=== PATIENT | male | born 1995 | race Caucasian/White ===

== ENCOUNTER 2021-04-22 08:14 | Emergency (ER) | payer SELFPAY ==
[~2021-04-22] VITALS: Ht 167.6 cm; Wt 67.2 kg
[2021-04-22] MEDS ORDERED: IV NORMAL SALINE 1000ML BAG 1,000 ML IV ONE (09:30)
[2021-04-22] MEDS ORDERED: ONDANSETRON PF 4 MG/2 ML VIAL. IVP ONE (09:30)
[2021-04-22] MEDS ORDERED: KETOROLAC 30 MG/ML VIAL. IVP ONE (09:30)
--- NOTE | 2021-04-22 11:11 | RAD ---
INDICATION: Reason: cough, COVID INFECTION / Spl. Instructions: / History: COMPARISON: None. FINDINGS: Single view of chest obtained. No focal airspace consolidation. Cardiomediastinal contour unremarkable. No acute osseous abnormality. IMPRESSION: * No focal airspace consolidation or edema. Electronically signed by: Billy Fernández MD (04/22/2021 11:08 AM) [id number]
--- NOTE | 2021-04-22 11:20 | PHYS DOC ---
General Adult EDM: Chief Complaint: HEADACHE HPI: HPI: Patient is a 26 year old male who present to ER for evaluation of headache, fever and chills. Patient said he has been sick with body ache flulike symptom nonproductive cough diarrhea with nausea for over a week. Patient has been drinking water but not able to eat much. Patient was not vaccinated for COVID- 19. Patient said he feels dehydrated. Patient denies any abdominal pain. Review of Systems: Review of Systems: Constitutional: Positive for fever and chills Eyes: Denies change in visual acuity. [] HENT: Denies nasal congestion or sore throat. [] Respiratory: Positive for nonproductive cough, no trouble breathing. Cardiovascular: Denies chest pain or edema. [] GI: Denies abdominal pain, positive for nausea vomiting diarrhea. : Denies dysuria. [] Musculoskeletal: Positive for back pain and muscle pain, joint pain Integument: Denies rash. [] Neurologic: Denies headache, focal weakness or sensory changes. [] Endocrine: Denies polyuria or polydipsia. [] Lymphatic: Denies swollen glands. [] Psychiatric: Denies depression or anxiety. [] Heart Score: C/O Chest Pain: N/A Risk Factors: Risk Factors: DM, Current or recent (<one month) smoker, HTN, HLP, family history of CAD, obesity. Risk Scores: Score 0 - 3: 2.5% MACE over next 6 weeks - Discharge Home Score 4 - 6: 20.3% MACE over next 6 weeks - Admit for Clinical Observation Score 7 - 10: 72.7% MACE over next 6 weeks - Early Invasive Strategies Current Medications: Current Medications Medications (Trade) Dose Ordered Sig/Virginie Start Time Stop Time Status Last Admin Dose Admin Ketorolac Tromethamine (Toradol 30mg Vial) 30 mg 1X ONCE 04/22/21 09:30 04/22/21 10:05 DC 04/22/21 10:02 30 MG Ondansetron HCl (Zofran) 4 mg 1X ONCE 04/22/21 09:30 04/22/21 10:05 DC 04/22/21 10:02 4 MG Sodium Chloride 1,000 ml @ 1,000 mls/hr 1X ONCE 04/22/21 09:30 04/22/21 10:29 DC 04/22/21 10:00 1,000 MLS/HR Allergies: Allergies: Allergies Coded Allergies Type Severity Reaction Last Updated Verified No Known Drug Allergies 04/22/21 No Physical Exam: PE: Constitutional: Well developed, well nourished, no acute distress, non-toxic appearance. [] HENT: Normocephalic, atraumatic, bilateral external ears normal, oropharynx moist, no oral exudates, nose normal. [] Eyes: PERRLA, EOMI, conjunctiva normal, no discharge. [] Neck: Normal range of motion, no tenderness, supple, no stridor. [] Cardiovascular:Heart rate regular rhythm, no murmur [] Lungs & Thorax: Bilateral breath sounds clear to auscultation [] Abdomen: Bowel sounds normal, soft, no tenderness, no masses, no pulsatile masses. [] Skin: Warm, dry, no erythema, no rash. [] Back: No tenderness, no CVA tenderness. [] Extremities: No tenderness, no cyanosis, no clubbing, ROM intact, no edema. [] Neurologic: Alert and oriented X 3, normal motor function, normal sensory function, no focal deficits noted. [] Psychologic: Affect normal, judgement normal, mood normal. [] Current Patient Data: Labs: Laboratory Tests Test 04/22/21 10:08 SARS-CoV-2 Antigen (Rapid) Positive (NEGATIVE) *A Vital Signs: Vital Signs Date Time Temp Pulse Resp B/P (MAP) Pulse Ox O2 Delivery O2 Flow Rate FiO2 04/22/21 10:03 99.4 58 16 100 99.4 EKG: EKG: [] Radiology/Procedures: Radiology/Procedures: [][facility] [address] [place] [address] IMAGING REPORT Signed PATIENT: SHAMA MCKEON ACCOUNT: [id number] : 1995 LOCATION: ER AGE: 26 SEX: M EXAM STATUS: REG ER ORD. PHYSICIAN: ALEX ROBLES DO REASON: cough, COVID INFECTION PROCEDURE: CHEST AP ONLY INDICATION: Reason: cough, COVID INFECTION / Spl. Instructions: / History: COMPARISON: None. FINDINGS: Single view of chest obtained. No focal airspace consolidation. Cardiomediastinal contour unremarkable. No acute osseous abnormality. IMPRESSION: * No focal airspace consolidation or edema. Electronically signed by: Sabrina Fernández MD (04/22/2021 11:08 AM) [id number] DICTATED and SIGNED BY: SABRINA FERNÁNDEZ MD DATE: 04/22/21 [id number] 0 Course & Med Decision Making: Course & Med Decision Making Pertinent Labs and Imaging studies reviewed. (See chart for details) Patient is a 26-year-old male who present to ER due to body ache, fever and chills, headache, cough. Patient also have diarrhea. Symptoms have been going on for about 1 week. Patient was tested positive for COVID-19. His chest x-ray was normal. Patient oxygen saturation with normal. Patient was given IV fluid in ER, he feel much better. Patient will be discharged home. Dragon Disclaimer: Dragon Disclaimer: This electronic medical record was generated, in whole or in part, using a voice recognition dictation system. Departure Departure Impression: Primary Impression: COVID-19 virus infection Disposition: HOME / SELF CARE / HOMELESS Condition: IMPROVED Referrals: NO PCP (PCP) Follow up with your doctor as needed. Patient Instructions: Viral Syndrome Additional Instructions: You have been tested for or diagnosed with COVID-19. It is an infection caused by a new type of coronavirus. COVID-19 will cause cold-like or mild flu symptoms in most. It can cause more severe symptoms like problems breathing in some. There is no treatment for COVID-19. The body will clear the infection over time. Self-care will help to ease discomfort. Steps to Take: Self-Care Rest as needed. Healthy habits may help you feel better. Steps include: Choose healthy foods including fruits and vegetables. Drink water throughout the day. Get plenty of sleep each night. If you smoke, try to quit. It may ease breathing. Avoid alcohol. Keep Others Healthy The virus can spread to others. Droplets are released every time you sneeze or cough. The droplets can get into the mouth, nose, or eyes of people near you and lead to infection. To lower the chances of spreading COVID-19 to others: Stay at home until your doctor has said it is safe to leave. If you tested positive this will mean staying isolated until both of the following are true: At least 7 days have passed since the start of illness. You are free of fever for at least 72 hours without the use of medicine. During this time: - Avoid public areas, events, or transportation. Do not return to work or school until your doctor has said it is safe to do so. - Call ahead if you need to go to a medical center. Let them know you may have COVID-19. It will help them guide you where to go. They may also ask you to wear a facemask when you come to the office. - If you call for emergency medical services, let them know you may have COVID- 19. While at home: - Try to avoid close contact with others. Stay about 6 feet away. - If possible, spend most of your time in a separate room from others. - Use a face mask if you will be in close contact with others such as sharing a room or vehicle. - Have someone wipe down common surfaces in the home. Use household material requirements worker every day on areas like doorknobs, counters, or sinks. - Cough or sneeze into a tissue. Throw the tissue away right after use. If a tissue is not available, cough or sneeze into your elbow. - Wash your hands often. Wash them after sneezing or coughing. Use soap and water and wash for at least 20 seconds. Alcohol based hand cotton cleaner can be used if soap and water is not available. - Do not prepare food for others. Avoid sharing personal items like forks, spoons, or toothbrushes. - Avoid close contact with pets while you are sick. There is no evidence of the virus passing to pets. This is a safety step until more is known about this virus. Isolation can be frustrating. Social interaction can help. Keep in touch with friends and family through phone and tech options. You can still interact with others in your home, just keep a safe distance of about 6 feet. Follow-up: Your doctors office will check in with you to see if there are any changes in your health. You may be asked to keep track of symptoms to share with them. They will also let you know when you are clear to be in public again. Problems to Look Out For: Contact your doctor if your recovery is not going as you expect. Get emergency care if you have problems such as: - Trouble breathing - Nonstop chest pain or pressure - Changes in awareness, confusion, or problems waking - Lips or face have bluish color - Worsening of symptoms If you think you have an emergency, call for emergency medical services right a way. As taken from [facility] Prednisone (PREDNISONE) 20 Mg Tablet 1 TAB PO DAILY for 7 Days, #7 TAB Prov: ALEX ROBLES DO 04/22/21 Albuterol Sulfate (PROAIR HFA INHALER) 8.5 Gm Hfa.aer.ad 2 PUFF IH PRN Q4-6HRS PRN for wheezing for 21 Days, #1 INHALER 0 Refills Prov: ALEX ROBLES DO 04/22/21 ALEX ROBLES DO Apr 22, 2021 11:20
[2021-04-22 12:11] VITALS: BP 135/81
[2021-04-22] MEDS ORDERED: PRED20TA PO (12:37)
[2021-04-22] MEDS ORDERED: ALBU2.5V8 IH (12:37)
== END 2021-04-22 12:35 | disposition home or self-care (01) ==
LOC: ER 08:14
DX: U07.1 COVID-19 (principal)
CPT/HCPCS: 71045; 87426; 96361; 96374; 96375; 99285; J1885; J2405; J7030

== ENCOUNTER 2021-04-27 01:14 | Emergency (ER) | payer SELFPAY ==
[~2021-04-27] VITALS: Ht 170.2 cm; Wt 72.7 kg
[~2021-04-27 01:14] MED LIST: ALBU2.5V8 IH; PRED20TA PO
--- NOTE | 2021-04-27 07:48 | PHYS DOC ---
Past Medical History Past Surgical History: No Surgical History Smoking Status: Current Every Day Smoker Alcohol Use: Occasionally General Adult EDM: Chief Complaint: CHEST PAIN HPI: HPI: Patient is a 26 year old male with reported history of asthma, and recent COVID positive test on 04/22 who presents with ongoing chills, body aches, cough, and now chest pain. On 04/22 was given an albuterol inhaler and prednisone prescription. States that the prednisone has made him feel anxious, so he did not take his dose yesterday or this morning. States he has had left-sided chest discomfort. It is occasional. Sharp. Not pleuritic. Not exertional. Feels slightly short of breath, but this has been constant for several days prior to any chest discomfort. He is not vaccinated against COVID. Reports occasional alcohol use in social situations.. Occasional marijuana. No other drug use. No long-term medications. No recent hospitalizations, immobilizations, surgeries, hemoptysis. No history of cancer. Review of Systems: Review of Systems: Constitutional: Reports chills Eyes: Denies change in visual acuity. [] HENT: Reports nasal congestion, runny nose. Respiratory: reports cough and shortness of breath Cardiovascular: Reports chest pain GI: Denies abdominal pain, nausea, vomiting, bloody stools or diarrhea. [] : Denies dysuria. [] Musculoskeletal: Denies back pain or joint pain. [] Integument: Denies rash. [] Neurologic: Reports headache. Denies focal weakness or sensory changes. [] Psychiatric: Denies depression or anxiety. [] Heart Score: C/O Chest Pain: Yes HEART Score for Chest Pain: HEART Score for Chest Pain Response (Comments) Value History Slighlty/Non-Suspicious 0 ECG Normal 0 Age < 45 0 Risk Factors No Risk Factors 0 Total 0 Risk Factors: Risk Factors: None Risk Scores: Score 0 - 3: 2.5% MACE over next 6 weeks - Discharge Home Allergies: Allergies: Allergies Coded Allergies Type Severity Reaction Last Updated Verified No Known Drug Allergies 04/22/21 No Physical Exam: PE: Constitutional: Well developed, well nourished, no acute distress, non-toxic appearance. [] HENT: Normocephalic, atraumatic, bilateral external ears normal, oropharynx moist, no oral exudates, nose normal. [] Eyes: PERRLA, EOMI, conjunctiva normal, no discharge. [] Neck: Normal range of motion, no tenderness, supple, no stridor. [] Cardiovascular:Heart rate regular rhythm, no murmur [] Lungs & Thorax: Bilateral breath sounds clear to auscultation. Normal work of breathing. No wheezing. [] Abdomen: Bowel sounds normal, soft, no tenderness, no masses, no pulsatile masses. [] Skin: Warm, dry, no erythema, no rash. [] Back: No tenderness, no CVA tenderness. [] Extremities: No tenderness, no cyanosis, no clubbing, ROM intact, no edema. [] Neurologic: Alert and oriented X 3, normal motor function, normal sensory function, no focal deficits noted. [] Psychologic: Affect normal, judgement normal, mood normal. [] EKG: EKG: Sinus rhythm. Rate 57. Normal axis. Normal intervals. No ST elevation or depression. No pathologic Q waves or T wave inversion. Interpretation: Normal EKG. No ischemic changes.[] Radiology/Procedures: Radiology/Procedures: [] Impression: [facility] [address] [place] [address] IMAGING REPORT Signed PATIENT: SHAMA MCKEON ACCOUNT: [id number] : 1995 LOCATION: ER AGE: 26 SEX: M EXAM STATUS: REG ER ORD. PHYSICIAN: NEVIN ELIZABETH MD REASON: left sided chest pain, covid PROCEDURE: CHEST AP ONLY XR CHEST 1V INDICATION: left sided chest pain, covid COMPARISON STUDY: 04/22/2021. FINDINGS: Lungs: Normal lung volume. No pulmonary mass or consolidation. The tracheobronchial tree and hilar structures are normal. Pleura: No pleural effusion or pneumothorax. Heart and Mediastinum: The cardiomediastinal silhouette is normal. The great vessels of the thorax are normal. Bones and Soft Tissues: The bones and soft tissues are within normal limits. IMPRESSION: No acute cardiopulmonary process. Electronically signed by: Eusebio Villalobos MD (04/27/2021 8:34 AM) [id number] DICTATED and SIGNED BY: EUSEBIO VILLALOBOS MD DATE: 04/27/21 [id number] 0 Course & Med Decision Making: Course & Med Decision Making Pertinent Labs and Imaging studies reviewed. (See chart for details) Patient a 26-year-old male who recently tested positive for COVID on 04/22 who presents with ongoing COVID symptoms and new chest pain. On arrival is afebrile, hemodynamically stable. Satting 99-100% on room air. PERC negative. No further PE work-up will be obtained EKG normal as described above. Not ischemic. No risk factors for ACS. Do not feel troponin is indicated. With normal EKG doubt myocarditis/pericarditis. Will check CXR to exclude pneumothorax or other pulmonary pathology. No significant volume losses to suggest need for electrolyte testing. If CXR is clear feel he will be safe for discharge with ongoing expectant management. Dragon Disclaimer: Dragon Disclaimer: This electronic medical record was generated, in whole or in part, using a voice recognition dictation system. Departure Departure Impression: Primary Impression: COVID-19 Disposition: HOME / SELF CARE / HOMELESS Condition: STABLE Referrals: NO PCP (PCP) Additional Instructions: You have Covid. Isolation: -You must have at least 3 days of no fever/chills, and improving symptoms before you end your isolation. -If you are continuing to be symptomatic or having high fevers you need to continue your isolation until you meet the above requirements. Monitoring: -Please buy a home pulse oximeter. These can be purchased [id number] most pharmacies, or on [employer]. -Check your oxygen levels once a day. If they are persistently below 90% please return to the emergency department. -If you develop chest pain or worsening shortness of breath please return to the emergency department. For fever/body aches tylenol and ibuprofen are best used on a schedule. Please alternate between the two. -Tylenol 1000 mg every 6 hours (do not exceed 4000 mg in one day) -Ibuprofen 400-600 mg every 6 hours. Take with food. Do not take for more than 1 week. ENVIN ELIZABETH MD Apr 27, 2021 07:48
--- NOTE | 2021-04-27 08:37 | RAD ---
XR CHEST 1V INDICATION: left sided chest pain, covid COMPARISON STUDY: 04/22/2021. FINDINGS: Lungs: Normal lung volume. No pulmonary mass or consolidation. The tracheobronchial tree and hilar st ructures are normal. Pleura: No pleural effusion or pneumothorax. Heart and Mediastinum: The cardiomediastinal silhouette is normal. The great vessels of the thorax ar e normal. Bones and Soft Tissues: The bones and soft tissues are within normal limits. IMPRESSION: No acute cardiopulmonary process. Electronically signed by: Eusebio Tidwell MD (04/27/2021 8:34 AM) [id number]
[2021-04-27 08:52] VITALS: BP 115/78
== END 2021-04-27 08:57 | disposition home or self-care (01) ==
LOC: ER 01:14
DX: U07.1 COVID-19 (principal); F17.200 Nicotine dependence, unspecified, uncomplicated
CPT/HCPCS: 71045; 99283